=== PATIENT | male | born 1970 | race Caucasian/White ===

== ENCOUNTER 2017-08-30 12:40 | Emergency (ER) | payer OTHER ==
[2017-08-30 12:47] VITALS: BP 146/99; PULSE 103; RESP 18; TEMP 97.2; O2SAT 94
[2017-08-30 13:00] LABS: APPEARANCE,URINE Clear; BILIRUBIN,URINE 1+ (NEGATIVE); GLUCOSE, URINE (UA) NEGATIVE (NEGATIVE); KETONES,URINE 1+ (NEGATIVE); LEUKOCYTE ESTERASE ,URINE NEGATIVE (NEGATIVE); NITRATE,URINE NEGATIVE (NEGATIVE); OCCULT BLOOD,URINE NEGATIVE (NEG-TRACE); PH,URINE 5.5
[2017-08-30 13:02] LABS: BASOPHILS % (AUTO) 1 % (0-3); EOSINOPHILS % (AUTO) 1 % (0-9); HEMATOCRIT 51 % (39-53); MEAN CORPUSCULAR HGB CONC 33.6 gm/dl (32.0-36.0); MEAN CORPUSCULAR VOLUME 95 fL (80-100); MONOCYTES % (AUTO) 7.4 % (0-12); NEUTROPHILS % (AUTO) 65.9 % (37-80)
[2017-08-30 13:15] LABS: COLOR,URINE DARK YELLOW; RBC,URINE NEG (0-3AV/HPF); WBC,URINE 0-63 (0-5AV/HPF)
[2017-08-30 13:16] LABS: ALBUMIN 3.8 gm/dl (3.4-5.0); POTASSIUM 3.6 mMol/L (3.5-5.1)
[2017-08-30 13:16] LABS: ICTOTEST,URINE NEGATIVE (NEGATIVE)
== END 2017-08-30 14:40 | disposition home or self-care (01) ==
LOC: ED 12:40
DX: R10.11 Right upper quadrant pain (principal)
CPT/HCPCS: 36415; 74177; 80053; 81001; 85025; 99283; Q9967